=== PATIENT | female | born 1965 | race Caucasian/White ===

== ENCOUNTER → 2018-04-16 | Outpatient (CLI) | payer OTHER ==
[~2018-04-16] MED LIST: DONE10TA61 PO; DONE5TAB7 PO; DOXY100C2 PO; LEVO137T2 PO; LISI-130 PO; MEMA10TA PO; [UNRECOGNIZED DRUG - CODE] MC
--- NOTE | 2018-04-16 14:25 | EKG ---
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
[2018-04-16 14:27] LABS: BASO # 0.1 x10^3/uL (0.0-0.2); BASO % 1 % (0-3); EOS # 0.6 x10^3/uL (0.0-0.7); EOS % 9 % (0-3); HEMATOCRIT 42.2 % (36.0-47.0); HEMOGLOBIN 14.7 g/dL (12.0-15.5); LYMPH % 15 % (24-48); MEAN CORPUSCULAR HEMOGLOBIN 31 pg (25-35); MEAN CORPUSCULAR HGB CONC 35 g/dL (31-37); MEAN CORPUSCULAR VOLUME 89 fL (79-100); MONO # 0.5 x10^3/uL (0.0-1.1); MONO % 7 % (0-9); NEUT # 4.8 x10^3uL (1.8-7.7); NEUT % 68 % (31-73); PLATELET COUNT 216 x10^3/uL (140-400); RED BLOOD COUNT 4.76 x10^6/uL (3.50-5.40)
[2018-04-16 14:33] LABS: ALBUMIN 3.8 g/dL (3.4-5.0); CALCIUM 9.7 mg/dL (8.5-10.1); CREATININE 0.8 mg/dL (0.6-1.0); GFR 75.3; POTASSIUM 3.4 mmol/L (3.5-5.1); TOTAL BILIRUBIN 0.5 mg/dL (0.2-1.0); TOTAL PROTEIN 7.6 g/dL (6.4-8.2)
--- NOTE | 2018-04-16 18:19 | RAD ---
Chest, 2 views, 04/16/2018: HISTORY: Preop evaluation for pending surgery The heart size and pulmonary vascularity are normal. No pulmonary infiltrate is seen. There is no evidence of pleural fluid. Moderate multilevel degenerative change is present in the spine. IMPRESSION: No acute cardiopulmonary abnormality is detected. Electronically signed by: Edgar Mayorga MD (04/16/2018 6:17 PM) [facility]
== END | disposition home or self-care (01) ==
LOC: SURGPAT 13:40
PROVIDERS: ATTEND Obstetrics & Gynecology
DX: Z01.818 Encounter for other preprocedural examination (principal); I10 Essential (primary) hypertension; E03.9 Hypothyroidism, unspecified
CPT/HCPCS: 36415; 71046; 80053; 84443; 85025; 93005

== ENCOUNTER 2018-04-23 05:38 | Observation (INO) | payer OTHER ==
[2018-04-23] VITALS (7 sets, daily range): BP systolic 120–133; BP diastolic 64–78
[~2018-04-23] VITALS: Ht 162.6 cm; Wt 69.9 kg
[~2018-04-23 05:38] MED LIST changes: -DONE10TA61 PO
[2018-04-23] MEDS ORDERED: ESTROGENS, CONJ VAGINAL CREAM 30GM TUBE. ONE (06:06)
[2018-04-23] MEDS ORDERED: BUPIVAC MPF-EPI 0.5%-1:200000 30 ML VIAL. ONE (06:06)
[2018-04-23] MEDS ORDERED: METHYLENE BLUE 1% 10 ML VIAL. ONE (06:06)
[2018-04-23] MEDS: IV RINGERS,LACTATED 1000ML 1,000 ML IV SCH ×2 (06:47→10:26)
[2018-04-23] MEDS ORDERED: fentaNYL PF VIAL 100 MCG/2 ML VIAL IV PRN (07:00)
[2018-04-23] MEDS ORDERED: ONDANSETRON PF 4 MG/2 ML VIAL. IV PRN ×2 (07:00→10:15)
[2018-04-23] MEDS ORDERED: HYDROmorphone 2 MG/ML VIAL IV PRN (07:00)
[2018-04-23] MEDS ORDERED: LIDOCAINE 1% PF 2 ML VIAL. ID PRN (07:00)
[2018-04-23] MEDS ORDERED: MORPHINE SULFATE 2 MG/ML VIAL. IV PRN ×2 (07:00→10:15)
[2018-04-23] MEDS ORDERED: PROPOFOL 20 ML IV ONE (07:20)
[2018-04-23] MEDS ORDERED: DEXAMETHASONE SOD PHOS 20 MG/5 ML VIAL. ONE (07:21)
[2018-04-23] MEDS ORDERED: ONDANSETRON PF 4 MG/2 ML VIAL. ONE (07:21)
[2018-04-23] MEDS ORDERED: ROCURONIUM 50 MG/5 ML VIAL. ONE (07:21)
[2018-04-23] MEDS ORDERED: fentaNYL PF VIAL 100 MCG/2 ML VIAL ONE (07:22)
[2018-04-23] MEDS ORDERED: DONE10TA61 PO (07:32)
[2018-04-23] MEDS ORDERED: PHENYLEPHRINE in 0.9% NACL PF 1 MG/10 ML SYRINGE. IV ONE (08:57)
[2018-04-23] MEDS ORDERED: SCOPOLAMINE 1.5MG PATCH. TD SCH (09:00)
[2018-04-23] MEDS ORDERED: MAG HYDROX/ALUMINUM HYD/SIMETH 30 ML ORAL.SUSP PO PRN (10:15)
[2018-04-23] MEDS ORDERED: MAGNESIUM HYDROXIDE 2,400 MG/30 ML ORAL.SUSP. PO PRN (10:15)
[2018-04-23] MEDS ORDERED: CALCIUM CARBONATE 500 MG TAB.CHEW PO PRN (10:15)
[2018-04-23] MEDS ORDERED: 0.9 % SODIUM CHLORIDE 10 ML DISP.SYRIN. IV PRN (10:15)
[2018-04-23] MEDS ORDERED: diphenhydrAMINE HCL 25 MG CAPSULE PO PRN (10:15)
[2018-04-23] MEDS ORDERED: ZOLPIDEM 5 MG TABLET. PO PRN (10:15)
[2018-04-23] MEDS ORDERED: NALOXONE 0.4 MG/ML VIAL. IV PRN (10:15)
[2018-04-23] MEDS ORDERED: oxyCODONE/APAP 5/325 1 TAB TABLET PO PRN (10:15)
[2018-04-23] MEDS ORDERED: SIMETHICONE 80 MG TAB.CHEW PO PRN (10:15)
[2018-04-23] MEDS ORDERED: LACTULOSE 20 GM/30 ML SOLUTION. PO PRN (10:15)
[2018-04-23] MEDS ORDERED: diphenhydrAMINE 50 MG/ML VIAL IV PRN (10:15)
[2018-04-23] MEDS: PROCHLORPERAZINE 10 MG/2 ML VIAL. IV PRN ×2 (10:18→10:55)
[2018-04-23] MEDS: fentaNYL PF VIAL 100 MCG/2 ML VIAL IV PRN ×3 (10:19→13:50)
--- NOTE | 2018-04-23 10:20 | PDOC ---
BRIEF OPERATIVE NOTE Date: Apr 23, 2018 Pre-Op Diagnosis DUB, menorrhagia Post-Op Diagnosis same plus adhesive disease with omentum and thick bladder scarring from 3 prior c-sections Procedure Performed LAVH/RSO/left salpingectomy/adhesiolysis Surgeon Dr. Clarice Ireland Exhibition Organiser ALANA Bansal Anesthesiologist Dr. Jose Anesthesia Type: General Blood Loss 100cc IV Fluid 800cc Urine Output 500cc clear via matamoros Specimens Obtained cervix, uterus, left tube, right tube and ovary Findings pelvic adhesive disease with omentum then thick bladder scarring, normal bilateral tubes and ovaries, enlarged RV uterus Complications none Operative Note [id number] CLARICE IRELAND MD Apr 23, 2018 10:20
--- NOTE | 2018-04-23 13:06 | OP ---
DATE OF SURGERY: 04/23/2018 PREOPERATIVE DIAGNOSES: 1. Dysfunctional uterine bleeding. 2. Menorrhagia. POSTOPERATIVE DIAGNOSES: 1. Dysfunctional uterine bleeding. 2. Menorrhagia. 3. Pelvic adhesive disease with omentum and a thick bladder scarring from her 3 prior sections. PROCEDURES: Laparoscopic assisted vaginal hysterectomy, right salpingo-oophorectomy, left salpingectomy and adhesiolysis. SURGEON: Ambreen Ireland M.D. THREAD SEPARATOR: ALANA Sandoval ANESTHESIOLOGIST: Dr. Jose. ANESTHESIA: General. ESTIMATED BLOOD LOSS: 100 mL. URINE OUTPUT: 500 mL, clear via Gutierrez catheter. IV FLUIDS: 800 mL of crystalloid. SPECIMEN: Cervix, uterus, left tube and right tube and ovary. FINDINGS: Pelvic adhesive disease with omentum to the whole anterior abdominal wall to the uterus to the bladder, the thick bladder scarring and normal bilateral tubes and ovaries and enlarged retroverted uterus. COMPLICATIONS: None. DESCRIPTION OF PROCEDURE: This patient was taken to the Operating Room where general anesthesia was placed. The patient was [facility] The patient's abdomen and vagina were prepped and draped in the normal sterile fashion and a Gutierrez catheter had been inserted under sterile technique. Upon my arrival, a timeout was performed indicating she had received her preoperative antibiotics, went over her allergies, procedures, everything. Once everything was agreed upon, a bivalve speculum was placed in the patient's vagina. A single-tooth tenaculum was used to grasp the anterior lip of the cervix. A 10 mL of 0.25% Marcaine with epinephrine was used to circumferentially inject around the cervix for both hemodissection and hemostatic purposes later. The Valtchev uterine manipulator was then placed through the endocervical os, locked on the single tooth tenaculum and the bivalve speculum was then removed. Top gloves were discarded and changed. At this point, a supraumbilical skin incision was made with the scalpel. A curved Chelsea was used to dissect through the subcuticular layer to the fascia. The 5 mm Visiport was used to directly enter the abdominal cavity, opening patient pressure was 3-4 mmHg. The patient was placed in Trendelenburg position. Carbon dioxide gas was used to appropriately insufflate the abdominal cavity to maintain a pressure of 14-15 mmHg. There were omental adhesions I could see in front of my port, but the port appeared to be clear. I was able to get around it. We put in a left lower quadrant port and a right lower quadrant port after transilluminating the abdomen making sure it was clear of any adhesions and placing it under direct visualization and insufflating the balloon with 2 mL of air. We then did move the camera and made sure the umbilical port was clear and it was. I took down some adhesions on the left side as they were more of a mass on that side, so the gynecological assistant port could get in and get down to the uterus, but we could see the uterus once Trendelenburg was performed and operate there. The omental scarring and bladder to that area was pretty thick as well, so this was all taken down using the monopolar hook on the LigaSure under direct visualization, started on the right side elevating the right tube and ovary, finding the ureter, coursing low, staying high on the IP ligament, taking the right ovary per patient request. They both looked normal. So, I did leave the left ovary and took the right ovary and then crossing the round ligament on the right side and starting that bladder flap as well. The left side had more adhesions. The omental adhesions were taken down, the left tube was elevated, going above the ovary, below the tube, leaving the left ovary, again per patient has been request for hormones, leaving one normal ovary. There was small clears probably 0.5 cm serous straw-colored cyst that was burst on the left ovary as well, but leaving it, taking the tube, crossing the uterine ovarian pedicle and staying posteriorly. Adhesions were thicker here, so I went through and got the bladder down on the right side, came across the midline to the side and then the round was very attenuated on this side from the pulling and scarring. Once I got the bladder down, I was able to cauterize the round ligament and free up the uterus and allowed it to move and then took the bladder down sharply and bluntly as well again with the monopolar hook and then just using the [place] to gently push the uterus up towards the head of the bed and peel it down. Once this was done, the uterine vessels were obtained on both sides going through the cardinal and broad ligaments down to the level of the uterosacrals, skeletonizing and getting the vasculature. Once this was all done, the uterus was completely free and it was blanching. All instruments were removed from the abdomen and attention was turned vaginally. The single tooth and Valtchev were removed. A weighted speculum was placed in the patient's vagina. Thyroid Miguel clamps were placed on the anterior and posterior lips of the cervix respectively. A scalpel was used to make a circumferential incision in the cervix. The suction was used to gently push up the anterior bladder peritoneum, peeling it down until we entered the anterior cul-de-sac sharply by just peeling layer after layer with just a scalpel and getting it. A curved Oxford was placed in the anterior cul-de-sac. The cervix was elevated and the posterior cul-de-sac was sharply entered with Schroeder scissors. A #0 Vicryl stitch was used to secure the posterior peritoneum here to the vaginal cuff securing the peritoneum to the vaginal cuff and tagging it with a curved Chelsea clamp and cutting and passing the needle off. The short weighted speculum was removed and replaced with the long weighted vaginal Preeti speculum. Curved Cristóbal clamps x 2 were placed on the patient's left uterosacral ligament where they were doubly clamped with curved Heaneys, cut with Schroeder scissors and suture ligated x 2 with 0 Vicryl. Second one was taken through the vaginal cuff, securing uterosacral ligament to the vaginal cuff and tagging it with a straight Chelsea clamp and cutting and passing the needle off. This was done exactly the same on the patient's right side, double clamping the uterosacrals with curved Cristóbal's, cutting with Schroeder scissors, suture ligating x 2 with #0 Vicryl, again taking the second one through the vaginal cuff. The right side was completely free. The left side had a small area left. A curved right angle clamp was taken around and the vaginal LigaSure was used to cauterize and cut this. The cervix, uterus, left tube and right tube and ovary were delivered in total and passed off for permanent pathology. Sponge stick was used to examine the pedicles. There was some slight bleeding from the patient's right side, the small bleeder was found. It was grasped with a burlisher and gone behind it with the vaginal LigaSure, cauterizing it with excellent results. The remainder appeared to be cuff bleeding, so I did not go up and get the entire anterior bladder peritoneum as this was where it was all scarred and everything, but I did get a small bite here going through the left uterosacral ligament, posterior peritoneum and right uterosacral ligament, thus closing the peritoneum in a pursestring like fashion. Once this was done, a full length 2-0 Vicryl was used to close the cuff in an anterior to posterior running locked fashion. The right and left uterosacral tags were clipped before this. The cuff was closed in a running locked fashion and tied to that posterior vaginal cuff tag. An interrupted stitch was placed in the middle for excellent results and hemostasis. The vaginal cuff appeared hemostatic. So at this point, all instruments were removed from the vagina. Sponge, lap and needle counts were correct x 2 by OR personnel. All gloves were discarded and changed and a second look was taken from above. Gas was reinsufflated, the patient was placed back in Trendelenburg, copious irrigation. There was some slight bleeding from the left cuff. This was grasped with the LigaSure with excellent results and Tisseel was placed over the remainder cuff. The left ovary looked good. The right IP ligament cuff looked good. The remainder of the cuff looked good. Copious irrigation then revealed hemostasis. The right and left lower quadrant ports, the gas was taken out of the cuff and the right and left lower quadrant ports were removed under direct visualization. These too were hemostatic. Gas was released from the umbilical port. All three port sites were closed with 4-0 nylon at the skin and injected with local. The patient was then awakened from anesthesia, extubated, and brought to Recovery Room in stable condition. AMBREEN IRELAND MD DR: XIN/jocelyn JOB#: [id number] / [id number]
[2018-04-23] MEDS ORDERED: KETOROLAC 30 MG/ML VIAL. IV PRN (13:45)
[2018-04-24 00:05] VITALS: BP 118/60
[2018-04-24 03:52] LABS: CALCIUM 8.9 mg/dL (8.5-10.1); CREATININE 0.9 mg/dL (0.6-1.0); GFR 65.5; POTASSIUM 3.9 mmol/L (3.5-5.1)
[2018-04-24 03:55] VITALS: BP_SYST 103; BP_SYST 97; BP_DIAS 36; BP_DIAS 52
[2018-04-24] MEDS ORDERED: LEVOTHYROXINE 137 MCG TABLET PO SCH (06:00)
[2018-04-24 07:50] VITALS: BP 101/62
--- NOTE | 2018-04-24 08:09 | PDOC ---
SURGICAL PROGRESS NOTE Subjective Doing well from surgery perspective. Voiding without catheter. Tolerating regular diet. Wants to go home. Minimal pain no pain meds. Scant VB Vital Signs Vital Signs Date Time Temp Pulse Resp B/P (MAP) Pulse Ox O2 Delivery O2 Flow Rate FiO2 04/24/18 03:55 97.7 97/36 (56) 97.7 04/24/18 03:55 72 18 97 Room Air 04/23/18 12:08 2.0 I&O Intake and Output 04/24/18 07:00 Intake Total 1050 ml Output Total 600 ml Balance 450 ml Intake IV Total 1050 ml Output Urine Total 500 ml Estimated Blood Loss 100 ml PATIENT HAS A ARIAS: No General: Alert, Oriented X3, Cooperative, No acute distress HEENT: Atraumatic Heart: Regular rate Abdomen: Soft, No tenderness, Other (bandages c/d/i) Extremities: No clubbing, No cyanosis, No edema, No tenderness/swelling Skin: No rashes, No breakdown Neuro: Normal speech Psych/Mental Status: Mental status NL (she has dementia, but baqck to her baseline), Mood NL Labs Laboratory Tests Test 04/24/18 03:15 Hematocrit 32.9 % (36.0-47.0) Sodium Level 139 mmol/L (136-145) Potassium Level 3.9 mmol/L (3.5-5.1) Chloride Level 103 mmol/L (98-107) Carbon Dioxide Level 29 mmol/L (21-32) Anion Gap 7 (6-14) Blood Urea Nitrogen 11 mg/dL (7-20) Creatinine 0.9 mg/dL (0.6-1.0) Estimated GFR (Cockcroft-Gault) 65.5 Glucose Level 125 mg/dL (70-99) Calcium Level 8.9 mg/dL (8.5-10.1) Laboratory Tests Test 04/24/18 03:15 Hematocrit 32.9 % (36.0-47.0) Sodium Level 139 mmol/L (136-145) Potassium Level 3.9 mmol/L (3.5-5.1) Chloride Level 103 mmol/L (98-107) Carbon Dioxide Level 29 mmol/L (21-32) Anion Gap 7 (6-14) Blood Urea Nitrogen 11 mg/dL (7-20) Creatinine 0.9 mg/dL (0.6-1.0) Estimated GFR (Cockcroft-Gault) 65.5 Glucose Level 125 mg/dL (70-99) Calcium Level 8.9 mg/dL (8.5-10.1) I have reviewed the following labs, vitals, nursing Psych: Other (dementia) Assessment/Plan POD#1 s/p LAVH/RSO/left salpingectomy/adhesiolysis Routine pO care d/c to home NPV x 6 weeks light/limited activity x 2 weeks NO driving on pain meds keep scheduled follow up with me in 7-10d call or return sooner for any other questions or concerns not limited to but including pain unrelieved with pain meds, increased or unexplained vaginal bleeding or T>100.4 already has pain meds at home AMBREEN ROSS MD Apr 24, 2018 08:09
--- NOTE | 2018-04-24 08:12 | PDOC3 ---
Discharge Summary Visit Information Date of Admission: Apr 23, 2018 Date of Discharge: Apr 24, 2018 Admitting Diagnosis Comment: menorrhagia, DUB Brief Hospital Course Allergies Allergies Coded Allergies Type Severity Reaction Last Updated Verified codeine Allergy Intermediate 04/23/18 Yes Vital Signs Vital Signs Date Time Temp Pulse Resp B/P (MAP) Pulse Ox O2 Delivery O2 Flow Rate FiO2 04/24/18 03:55 97.7 97/36 (56) 97.7 04/24/18 03:55 72 18 97 Room Air 04/23/18 12:08 2.0 Lab Results Laboratory Tests Test 04/24/18 03:15 Hematocrit 32.9 % (36.0-47.0) Sodium Level 139 mmol/L (136-145) Potassium Level 3.9 mmol/L (3.5-5.1) Chloride Level 103 mmol/L (98-107) Carbon Dioxide Level 29 mmol/L (21-32) Anion Gap 7 (6-14) Blood Urea Nitrogen 11 mg/dL (7-20) Creatinine 0.9 mg/dL (0.6-1.0) Estimated GFR (Cockcroft-Gault) 65.5 Glucose Level 125 mg/dL (70-99) Calcium Level 8.9 mg/dL (8.5-10.1) Laboratory Tests Test 04/24/18 03:15 Hematocrit 32.9 % (36.0-47.0) Sodium Level 139 mmol/L (136-145) Potassium Level 3.9 mmol/L (3.5-5.1) Chloride Level 103 mmol/L (98-107) Carbon Dioxide Level 29 mmol/L (21-32) Anion Gap 7 (6-14) Blood Urea Nitrogen 11 mg/dL (7-20) Creatinine 0.9 mg/dL (0.6-1.0) Estimated GFR (Cockcroft-Gault) 65.5 Glucose Level 125 mg/dL (70-99) Calcium Level 8.9 mg/dL (8.5-10.1) Brief Hospital Course Ms. Hooks is a 53 old female who presented with DUB/menorrhagia despite hormonal therapy. She underwent and LAVH/RSO/left salpingectomy and adhesiolysis yesterday without complications. She has had an unremarkable postoperative course and is desiring to go home. She is tolerating a regular diet, voiding without catheter and minimal pain. Discharge Information Condition at Discharge: Improved Follow Up: Weeks Disposition/Orders: D/C to Home Scheduled Donepezil Hcl (Donepezil Hcl) 5 Mg Tablet, 1 TAB PO DAILY, #30 Ref 5 (Reported) Entered as Reported by: MEGHAN VEGA on 04/16/18 1355 Last Taken: Unknown Dose on 04/23/18 0500 Last Action: HELD on 04/23/181003 by AMBREEN ROSS Doxycycline Hyclate (Doxycycline Hyclate) 100 Mg Capsule, 100 MG PO DAILY, ( Reported) Entered as Reported by: MEGHAN VEGA on 04/16/18 135 Last Taken: Unknown Dose on 04/22/18 Last Action: HELD on 04/23/18 100 by AMBREEN ROSS Levothyroxine Sodium (Synthroid) 137 Mcg Tablet, 1 TAB PO DAILY, #30 Ref 5 ( Reported) Entered as Reported by: MEGHAN VEGA on 04/16/181354 Last Taken: Unknown Dose on 04/22/18 Last Action: Continued on 04/23/181003 by AMBREEN ROSS Lisinopril (Lisinopril) 40 Mg Tablet, 1 TAB PO DAILY, #30 Ref 5 (Reported) Entered as Reported by: MEGHAN VEGA on 04/16/181354 Last Taken: Unknown Dose on 04/22/18 Last Action: Continued on 04/23/181003 by AMBREEN ROSS Memantine Hcl (Namenda) 10 Mg Tablet, 1 TAB PO BID, #180 Ref 1 (Reported) Entered as Reported by: MEGHAN VEGA on 04/16/181354 Last Taken: Unknown Dose on 04/22/18 Last Action: HELD on 04/23/18 100 by AMBREEN ROSS Patient Instructions Patient Instructions POD#1 s/p LAVH/RSO/left salpingectomy/adhesiolysis Routine pO care d/c to home NPV x 6 weeks light/limited activity x 2 weeks NO [address] on pain meds keep scheduled follow up with me in 7-10d call or return sooner for any other questions or concerns not limited to but including pain unrelieved with pain meds, increased or unexplained vaginal bleeding or T>100.4 already has pain meds at home AMBREEN ROSS MD Apr 24, 2018 08:12
[2018-04-24] MEDS ORDERED: LISINOPRIL 20 MG TABLET PO SCH (09:00)
--- NOTE | 2018-04-27 13:09 | PATHOLOGY ---
[facility] Accession Number: [id number] . 01 Material submitted: . UTERUS, CERVIX, RIGHT FALLOPIAN TUBE AND OVARY, AND LEFT FALLOPIAN TUBE . 01 Clinical history: . Vaginal bleeding. . 02 Diagnosis: Uterus, right ovary and fallopian tube, and left fallopian tube, removal: - Cervix with mild chronic inflammation, squamous metaplasia and nabothian cysts. - Basalis endometrium. - Myometrium with single leiomyoma, 0.6 cm. - Right and left fallopian tubes with no significant histopathologic diagnosis. - Right ovary with hemorrhagic corpus luteum, 0.7 cm. (SK:[facility] 04/27/2018) [facility]/04/27/2018 . 02 Electronically signed: . Joshua Kwon MD, Pathologist NPI- [id number] . 01 Gross description: . Received in formalin labeled "Rossy Hooks, uterus, cervix, right fallopian tube, right ovary, left fallopian tube" is a hysterectomy specimen consisting of a uterus with attached fallopian tubes and an attached right ovary. The uterus weighs 113 g and measures 9.6 cm from fundus to cervix, 6.6 cm from cornu to cornu, and 4.7 cm from anterior to posterior. The serosa is red-brown and ragged on the anterior aspect over a 4.6 x 3.7 cm area. The remaining serosa is pink-red and smooth. The cervical os is ovoid and measures 1.2 x 0.8 cm, and the ectocervix is pink-wilhelm and glistening. The cervix is probed patent and the uterus is opened to reveal a 4.0 x 1.7 cm endometrial cavity and a 2.7 x 0.9 cm endocervical canal. The average endometrial thickness measures 0.2 cm and the average myometrial thickness measures 2.3 cm. The uterus is serially sectioned to reveal one 0.6 cm leiomyoma without hemorrhage or necrosis. The right fimbriated fallopian tube measures 2.6 cm in length and 0.8 cm in diameter. The left fimbriated fallopian tube measures 2.4 cm in length and 0.6 cm in diameter. The serosal surfaces are pink wilhelm and smooth and the left fallopian tube has 2 thin-walled paratubal cysts each measuring 1.0 cm in greatest dimension. The fallopian tubes are serially sectioned to reveal pinpoint lumens. The right ovary weighs 5 g and measures 3.2 x 2.0 x 1.5 cm. Upon sectioning, the ovary displays a hemorrhagic cyst measuring 0.7 cm in greatest dimension. The remaining cut surface is wilhelm-white and unremarkable. . [employer] Window [employer] Maker sections are submitted as follows: A1 12:00 cervix A2 6:00 cervix A3 anterior endomyometrium and ragged serosa A4 posterior endomyometrium A5 shared services representative right fallopian tube A6 shared services representative left fallopian tube A7 shared services representative right ovary A8 [place] SYC/SYC . 02 Pathologist provided ICD-10: D25.9, N72, N93.9 . 02 CPT . 605173 Specimen Comment: A courtesy copy of this report has been sent to Specimen Comment: [phone], . Specimen Comment: Report sent to / DR VILLA Specimen Comment: A duplicate report has been generated due to demographic updates. Performed at: 01 [facility] [address] [id number] MD Yan Mohan MD Phone: [phone] Performed at: [address] [facility] [address] [id number] MD Cliff Rausch MD Phone: [phone]
== END 2018-04-24 12:47 | disposition home or self-care (01) ==
LOC: SURG 05:38 → EDUNIT# 07:30 → 3 NORTH 10:33
PROVIDERS: ADMIT Obstetrics & Gynecology; ATTEND Obstetrics & Gynecology
DX: N93.8 Other specified abnormal uterine and vaginal bleeding (principal); N92.0 Excessive and frequent menstruation with regular cycle; N73.6 Female pelvic peritoneal adhesions (postinfective); K66.0 Peritoneal adhesions (postprocedural) (postinfection); N85.4 Malposition of uterus; Z98.891 History of uterine scar from previous surgery
CPT/HCPCS: 36415; 58552; 80048; 85014; 86850; 86900; 86901; 88307; 96374; 96375; G0378; G0379; J0690; J0780; J1100; J1885; J2370; J2704; J3010; J3490; J7030; J2405; Q9968

== ENCOUNTER 2020-02-01 07:59 | Emergency (ER) | payer OTHER ==
[~2020-02-01] VITALS: Ht 162.6 cm; Wt 65.0 kg
[~2020-02-01 07:59] MED LIST changes: +DONE10TA61 PO; -LEVO137T2 PO; +LEVO137T44 PO
[2020-02-01] MEDS ORDERED: LIDOCAINE 1%/EPI 1:100,000 20 ML VIAL. INJ ONE (08:15)
--- NOTE | 2020-02-01 09:53 | RAD ---
EXAM: CT Head without IV contrast INDICATION: Reason: FELL OUT OF BED, HEAD INJURY / Spl. Instructions: / History: TECHNIQUE: Multi-detector row CT images were obtained of the head without the use of IV contrast. All CT scans performed at this facility utilize dose optimization techniques as appropriate to the exam, including the following: Automated exposure control and adjustment of the mA and/or KV according to patient size (this includes techniques or standardized protocols for targeted exams where dose is indication/reason for exam). COMPARISON: None FINDINGS: BRAIN PARENCHYMA: No evidence of acute intraparenchymal hemorrhage or infarct. There is generalized parenchymal volume loss somewhat advanced for stated patient age. Beam hardening artifact from the patient's thickened calvarium is present along the cerebral gyri. VENTRICLES & EXTRA-AXIAL SPACES: Ventricles are enlarged in proportion to the degree of parenchymal volume loss present.. Basilar cisterns are patent. No pathologic extra-axial fluid collection or mass. ORBITS: Orbital contents are unremarkable. SINUSES: Visualized paranasal sinuses and mastoid air cells are clear. OSSEOUS & SOFT TISSUES: Calvarium and skull base are intact. No skull fracture. No aggressive appearing osseous lesions.. Left frontal scalp contusion with punctate density at the skin surface (image 11 of series 2). IMPRESSION: 1. No acute intracranial pathology. 2. Left frontal scalp contusion. 3. Generalized parenchymal atrophy, somewhat advanced for age. EXAM: CT Maxillofacial with IV contrast INDICATION: Reason: FELL OUT OF BED, HEAD INJURY / Spl. Instructions: / History: TECHNIQUE: Multi-detector row CT images were obtained through the maxillofacial region with the use of IV contrast. Post-processing reconstructed images were obtained for interpretation. All CT scans performed at this facility utilize dose optimization techniques as appropriate to the exam, including the following: Automated exposure control and adjustment of the mA and/or KV according to patient size (this includes techniques or standardized protocols for targeted exams where dose is indication/reason for exam). IV CONTRAST: Administered COMPARISON: None FINDINGS: OSSEOUS: Subtle deformity to the nasal bones without associated soft tissue swelling could reflect an age-indeterminate, possibly chronic nasal bone fracture. Otherwise no evidence of fracture or bone destruction. VISUALIZED INTRACRANIAL STRUCTURES: Unremarkable. ORBITS: Orbital contents are unremarkable.. SINUSES: Visualized paranasal sinuses and mastoid air cells are clear. SOFT TISSUES: Left frontal scalp swelling IMPRESSION: Left frontal scalp swelling with no acute traumatic facial fractures noted. EXAM: CT Cervical Spine without IV contrast INDICATION: Reason: FELL OUT OF BED, HEAD INJURY / Spl. Instructions: / History: TECHNIQUE: Multi-detector row CT images were obtained through the cervical spine without the use of IV contrast. Post-processing sagittal and coronal reconstructed images were obtained for interpretation. All CT scans performed at this facility utilize dose optimization techniques as appropriate to the exam, including the following: Automated exposure control and adjustment of the mA and/or KV according to patient size (this includes techniques or standardized protocols for targeted exams where dose is indication/reason for exam). COMPARISON: None FINDINGS: The initially provided images cover the patient's C-spine down to the C7 mid body but do not fully cover the cervical thoracic junction. CRANIOCERVICAL JUNCTION: Unremarkable. ALIGNMENT: Alignment is within normal limits down to C6-C7. OSSEOUS: No evidence of fracture or bone destruction down to C6-C7. DISC SPACES: Degenerative changes at C5-C6 and C6-C7 are present. On initial imaging, C7-T1 is not easily assessed. FACET JOINTS: Unremarkable in the visualized portion. SPINAL CANAL: Unremarkable in the visualized portion. NEUROFORAMINA: Multilevel degenerative spondylosis results in varying degrees of foraminal narrowing. SOFT TISSUES: No prevertebral soft tissue swelling down to the C6-C7 level. IMPRESSION: Initial images of the cervical spine reveal disc degenerative change but no acute traumatic findings. Since the cervicothoracic junction has not been satisfactorily included in the [id number], the patient will be brought back for additional images and at which time, an addendum can be issued. Discussed with Dr. Love by telephone at 9:45 AM 02/01/2020. Electronically signed by: Renetta Curry MD (02/01/2020 9:50 AM) [id number]
[2020-02-01 10:11] LABS: BASO % 0 % (0-3); EOS % 0 % (0-3); HEMATOCRIT 42.9 % (36.0-47.0); HEMOGLOBIN 14.3 g/dL (12.0-15.5); LYMPH # 0.9 x10^3/uL (1.0-4.8); LYMPH % 11 % (24-48); MEAN CORPUSCULAR HEMOGLOBIN 31 pg (25-35); MEAN CORPUSCULAR HGB CONC 33 g/dL (31-37); MEAN CORPUSCULAR VOLUME 92 fL (79-100); MONO # 0.5 x10^3/uL (0.0-1.1); MONO % 6 % (0-9); NEUT # 7.1 x10^3/uL (1.8-7.7); NEUT % 83 % (31-73); PLATELET COUNT 150 x10^3/uL (140-400); RED BLOOD COUNT 4.66 x10^6/uL (3.50-5.40); RED CELL DISTRIBUTION WIDTH 15.9 % (11.5-14.5); WHITE BLOOD COUNT 8.6 x10^3/uL (4.0-11.0)
[2020-02-01 10:34] LABS: CALCIUM 8.7 mg/dL (8.5-10.1); CREATININE 0.7 mg/dL (0.6-1.0); GFR 87.2; POTASSIUM 4.3 mmol/L (3.5-5.1)
--- NOTE | 2020-02-01 10:43 | RAD ---
SHOULDER 2+V LEFT History: Reason: FELL OUT OF BED, LEFT SIDE SHOULDER CONTUSION / Spl. Instructions: / History: Technique: 2 views left shoulder. Comparison: None. Findings: Normal alignment of the left glenohumeral and acromioclavicular joints. No fracture. Soft tissues unremarkable. Impression: 1. No acute osseous abnormality. Electronically signed by: Henry Eaton DO (02/01/2020 10:40 AM) [id number]
[2020-02-01 10:44] LABS: ALBUMIN/GLOBULIN RATIO 0.8 (1.0-1.7); MAGNESIUM 2.6 mg/dL (1.8-2.4); TOTAL BILIRUBIN 0.6 mg/dL (0.2-1.0)
--- NOTE | 2020-02-01 10:45 | RAD ---
PELVIS History: Reason: FELL OUT OF BED / Spl. Instructions: / History: Technique: AP view the pelvis. Comparison: None. Findings: Normal AP alignment of the hips. No fracture. Lower lumbar spondylosis. Impression: 1. No acute osseous abnormality. Electronically signed by: Henry Eaton DO (02/01/2020 10:42 AM) [id number]
--- NOTE | 2020-02-01 10:55 | RAD ---
CHEST AP ONLY History: Reason: FELL OUT OF BED/ CT ALSO / Spl. Instructions: / History: . Pain. Comparison: April 16, 2018 Findings: No consolidation or pleural effusion. Normal heart size. No pneumothorax. Peripherally calcified lesion within the left upper abdomen, splenic cystic lesion, unchanged compared to prior. Impression: 1. No acute cardiopulmonary process. Electronically signed by: Henry Eaton DO (02/01/2020 10:52 AM) [id number]
[2020-02-01] MEDS ORDERED: DIPH,PERTUSS(ACELL),TET VAC/PF 0.5 ML SYRINGE. VAX IM ONE (11:45)
[2020-02-01] MEDS ORDERED: DEXTROSE 50% 25 GM / 50ML DISP.SYRIN. IV ONE (11:45)
--- NOTE | 2020-02-01 11:50 | EKG ---
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
[2020-02-01] MEDS ORDERED: GLUCAGON,HUMAN RECOMBINANT 1 MG/ML VIAL. IM STA (12:10)
--- NOTE | 2020-02-01 12:38 | PHYS DOC ---
Past Medical History Past Medical History: Anxiety, Dementia, Other Additional Past Medical Histor: DYSPHASIA Past Surgical History: No Surgical History Smoking Status: Unknown if ever smoked Alcohol Use: None General Adult EDM: Chief Complaint: HEAD INJURY/TRAUMA HPI: HPI: Patient is a 54 year old female who [facility] she was found on the floor in the bathroom this morning. alf staff found her in her bed this morning at 5 AM this morning. Then around 8:00 this morning patient was found in the bathroom. Patient has history of dementia, have history of frequent falls in the past. Last tetanus shot was A year ago. Patient could not provide any information. Patient is not on any blood thinner. Review of Systems: Review of Systems: Constitutional: Denies fever or chills. [] Eyes: Denies change in visual acuity. [] HENT: Denies nasal congestion or sore throat. [] Respiratory: Denies cough or shortness of breath. [] Cardiovascular: Denies chest pain or edema. [] GI: Denies abdominal pain, nausea, vomiting, bloody stools or diarrhea. [] : Denies dysuria. [] Musculoskeletal: Denies back pain or joint pain. [] Integument: Denies rash. [] Neurologic: Patient complained of headache Endocrine: Denies polyuria or polydipsia. [] Lymphatic: Denies swollen glands. [] Psychiatric: Denies depression or anxiety. [] Heart Score: Risk Factors: Risk Factors: DM, Current or recent (<one month) smoker, HTN, HLP, family history of CAD, obesity. Risk Scores: Score 0 - 3: 2.5% MACE over next 6 weeks - Discharge Home Score 4 - 6: 20.3% MACE over next 6 weeks - Admit for Clinical Observation Score 7 - 10: 72.7% MACE over next 6 weeks - Early Invasive Strategies Current Medications: Current Medications Medications (Trade) Dose Ordered Sig/Monika Start Time Stop Time Status Last Admin Dose Admin Dextrose (Dextrose 50%-Water Syringe) 25 gm 1X ONCE 02/01/20 11:45 02/01/20 12:11 DC Diphtheria/ Tetanus/Acell Pertussis (ADACEL TDap SYRINGE) 0.5 ml ONCE ONCE 02/01/20 11:45 02/01/20 11:46 DC Glucagon (Glucagen) 1 mg 1X STAT 02/01/20 12:10 8/11/20 12:13 DC 02/01/20 12:18 1 MG Lidocaine/ Epinephrine (LIDOCAINE 1%-EPI 1:100,000 Multi-Dose) 20 ml 1X ONCE 02/01/20 08:15 02/01/20 08:17 DC 02/01/20 09:00 20 ML Allergies: Allergies: Allergies Coded Allergies Type Severity Reaction Last Updated Verified codeine Allergy Intermediate 04/23/18 Yes Physical Exam: PE: Constitutional: Well developed, well nourished, confused. HENT: Normocephalic, about 4 cm laceration on the left forehead area, bilateral external ears normal, oropharynx moist, no oral exudates, nose normal. [] Eyes: PERRLA, EOMI, conjunctiva normal, no discharge. [] Neck: Normal range of motion, no tenderness, supple, no stridor. [] Cardiovascular:Heart rate regular rhythm, no murmur [] Lungs & Thorax: Bilateral breath sounds clear to auscultation [] Abdomen: Bowel sounds normal, soft, no tenderness, no masses, no pulsatile masses. [] Skin: Cold to touch, skin contusion on left shoulder. Left side forehead skin laceration. Back: No tenderness, no CVA tenderness. [] Extremities: No tenderness, no cyanosis, no clubbing, ROM intact, no edema. [] Neurologic: Patient awake alert but very confused. Psychologic: Not able to evaluate. Current Patient Data: Labs: Laboratory Tests Test 02/01/20 10:05 02/01/20 12:09 White Blood Count 8.6 x10^3/uL (4.0-11.0) Red Blood Count 4.66 x10^6/uL (3.50-5.40) Hemoglobin 14.3 g/dL (12.0-15.5) Hematocrit 42.9 % (36.0-47.0) Mean Corpuscular Volume 92 fL (79-100) Mean Corpuscular Hemoglobin 31 pg (25-35) Mean Corpuscular Hemoglobin Concent 33 g/dL (31-37) Red Cell Distribution Width 15.9 % (11.5-14.5) H Platelet Count 150 x10^3/uL (140-400) Neutrophils (%) (Auto) 83 % (31-73) H Lymphocytes (%) (Auto) 11 % (24-48) L Monocytes (%) (Auto) 6 % (0-9) Eosinophils (%) (Auto) 0 % (0-3) Basophils (%) (Auto) 0 % (0-3) Neutrophils # (Auto) 7.1 x10^3/uL (1.8-7.7) Lymphocytes # (Auto) 0.9 x10^3/uL (1.0-4.8) L Monocytes # (Auto) 0.5 x10^3/uL (0.0-1.1) Eosinophils # (Auto) 0.0 x10^3/uL (0.0-0.7) Basophils # (Auto) 0.0 x10^3/uL (0.0-0.2) Sodium Level 142 mmol/L (136-145) Potassium Level 4.3 mmol/L (3.5-5.1) Chloride Level 106 mmol/L (98-107) Carbon Dioxide Level 26 mmol/L (21-32) Anion Gap 10 (6-14) Blood Urea Nitrogen 26 mg/dL (7-20) H Creatinine 0.7 mg/dL (0.6-1.0) Estimated GFR (Cockcroft-Gault) 87.2 BUN/Creatinine Ratio 37 (6-20) H Glucose Level 62 mg/dL (70-99) L Calcium Level 8.7 mg/dL (8.5-10.1) Magnesium Level 2.6 mg/dL (1.8-2.4) H Total Bilirubin 0.6 mg/dL (0.2-1.0) Aspartate Amino Transferase (AST) 36 U/L (15-37) Alanine Aminotransferase (ALT) 24 U/L (14-59) Alkaline Phosphatase 88 U/L (46-116) Creatine Kinase 310 U/L (26-192) H Troponin I Quantitative < 0.017 ng/mL (0.000-0.055) QQ-Jfq-K-Type Natriuretic Peptide 61 pg/mL (0-124) Total Protein 7.0 g/dL (6.4-8.2) Albumin 3.0 g/dL (3.4-5.0) L Albumin/Globulin Ratio 0.8 (1.0-1.7) L Glucose (Fingerstick) 57 mg/dL (70-99) L Laboratory Tests 02/01/20 10:05 Laboratory Tests 02/01/20 10:05 Vital Signs: Vital Signs Date Time Temp Pulse Resp B/P (MAP) Pulse Ox O2 Delivery O2 Flow Rate FiO2 02/01/20 09:22 48 87/65 (72) 100 Room Air 02/01/20 08:00 96.7 20 96.7 EKG: EKG: [] Radiology/Procedures: Radiology/Procedures: [facility] [address] [place] [address] IMAGING REPORT Signed PATIENT: MARITO SHELL ACCOUNT: [id number] : 1965 LOCATION: ER AGE: 54 SEX: F EXAM STATUS: REG ER ORD. PHYSICIAN: LISA STUART DO REASON: FELL OUT OF BED, HEAD INJURY PROCEDURE: CT HEAD AND CERVICAL SPINE WO EXAM: CT Head without IV contrast INDICATION: Reason: FELL OUT OF BED, HEAD INJURY / Spl. Instructions: / History: TECHNIQUE: Multi-detector row CT images were obtained of the head without the use of IV contrast. All CT scans performed at this facility utilize dose optimization techniques as appropriate to the exam, including the following: Automated exposure control and adjustment of the mA and/or KV according to patient size (this includes techniques or standardized protocols for targeted exams where dose is indication/reason for exam). COMPARISON: None FINDINGS: BRAIN PARENCHYMA: No evidence of acute intraparenchymal hemorrhage or infarct. There is generalized parenchymal volume loss somewhat advanced for stated patient age. Beam hardening artifact from the patient's thickened calvarium is present along the cerebral gyri. VENTRICLES & EXTRA-AXIAL SPACES: Ventricles are enlarged in proportion to the degree of parenchymal volume loss present.. Basilar cisterns are patent. No pathologic extra-axial fluid collection or mass. ORBITS: Orbital contents are unremarkable. SINUSES: Visualized paranasal sinuses and mastoid air cells are clear. OSSEOUS & SOFT TISSUES: Calvarium and skull base are intact. No skull fracture. No aggressive appearing osseous lesions.. Left frontal scalp contusion with punctate density at the skin surface (image 11 of series 2). IMPRESSION: 1. No acute intracranial pathology. 2. Left frontal scalp contusion. 3. Generalized parenchymal atrophy, somewhat advanced for age. EXAM: CT Maxillofacial with IV contrast INDICATION: Reason: FELL OUT OF BED, HEAD INJURY / Spl. Instructions: / History: TECHNIQUE: Multi-detector row CT images were obtained through the maxillofacial region with the use of IV contrast. Post-processing reconstructed images were obtained for interpretation. All CT scans performed at this facility utilize dose optimization techniques as appropriate to the exam, including the following: Automated exposure control and adjustment of the mA and/or KV according to patient size (this includes techniques or standardized protocols for targeted exams where dose is indication/reason for exam). IV CONTRAST: Administered COMPARISON: None FINDINGS: OSSEOUS: Subtle deformity to the nasal bones without associated soft tissue swelling could reflect an age-indeterminate, possibly chronic nasal bone fracture. Otherwise no evidence of fracture or bone destruction. VISUALIZED INTRACRANIAL STRUCTURES: Unremarkable. ORBITS: Orbital contents are unremarkable.. SINUSES: Visualized paranasal sinuses and mastoid air cells are clear. SOFT TISSUES: Left frontal scalp swelling IMPRESSION: Left frontal scalp swelling with no acute traumatic facial fractures noted. EXAM: CT Cervical Spine without IV contrast INDICATION: Reason: FELL OUT OF BED, HEAD INJURY / Spl. Instructions: / History: TECHNIQUE: Multi-detector row CT images were obtained through the cervical spine without the use of IV contrast. Post-processing sagittal and coronal reconstructed images were obtained for interpretation. All CT scans performed at this facility utilize dose optimization techniques as appropriate to the exam, including the following: Automated exposure control and adjustment of the mA and/or KV according to patient size (this includes techniques or standardized protocols for targeted exams where dose is indication/reason for exam). COMPARISON: None FINDINGS: The initially provided images cover the patient's C-spine down to the C7 mid body but do not fully cover the cervical thoracic junction. CRANIOCERVICAL JUNCTION: Unremarkable. ALIGNMENT: Alignment is within normal limits down to C6-C7. OSSEOUS: No evidence of fracture or bone destruction down to C6-C7. DISC SPACES: Degenerative changes at C5-C6 and C6-C7 are present. On initial imaging, C7-T1 is not easily assessed. FACET JOINTS: Unremarkable in the visualized portion. SPINAL CANAL: Unremarkable in the visualized portion. NEUROFORAMINA: Multilevel degenerative spondylosis results in varying degrees of foraminal narrowing. SOFT TISSUES: No prevertebral soft tissue swelling down to the C6-C7 level. IMPRESSION: Initial images of the cervical spine reveal disc degenerative change but no acute traumatic findings. Since the cervicothoracic junction has not been satisfactorily included in the [id number]-[id number]-roum, the patient will be brought back for additional images and at which time, an addendum can be issued. Discussed with Dr. Stuart by telephone at 9:45 AM 02/01/2020. Electronically signed by: Jessica Curry MD (02/01/2020 9:50 AM) [id number] DICTATED and SIGNED BY: JESSICA CURRY MD DATE: 02/01/20 [address] [place] [address] IMAGING REPORT Signed PATIENT: MARITO SHELL ACCOUNT: [id number] : 1965 LOCATION: ER AGE: 54 SEX: F EXAM STATUS: REG ER ORD. PHYSICIAN: LISA STUART DO REASON: FELL OUT OF BED PROCEDURE: PELVIS PELVIS History: Reason: FELL OUT OF BED / Spl. Instructions: / History: Technique: AP view the pelvis. Comparison: None. Findings: Normal AP alignment of the hips. No fracture. Lower lumbar spondylosis. Impression: 1. No acute osseous abnormality. Electronically signed by: Henry Eaton DO (02/01/2020 10:42 AM) [id number] DICTATED and SIGNED BY: HENRY EATON DO DATE: 02/01/[address] [address] IMAGING REPORT Signed PATIENT: MARITO SHELL ACCOUNT: [id number] : 1965 LOCATION: ER AGE: 54 SEX: F EXAM STATUS: REG ER ORD. PHYSICIAN: LISA STUART DO REASON: FELL OUT OF BED, LEFT SIDE SHOULDER CONTUSION PROCEDURE: SHOULDER 2+V LEFT SHOULDER 2+V LEFT History: Reason: FELL OUT OF BED, LEFT SIDE SHOULDER CONTUSION / Spl. Instructions: / History: Technique: 2 views left shoulder. Comparison: None. Findings: Normal alignment of the left glenohumeral and acromioclavicular joints. No fracture. Soft tissues unremarkable. Impression: 1. No acute osseous abnormality. Electronically signed by: Henry Eaton DO (02/01/2020 10:40 AM) [id number] DICTATED and SIGNED BY: HENRY EATON DO DATE: 02/01/20 1040 [facility] [address] [place] [address] IMAGING REPORT Signed PATIENT: MARITO SHELL ACCOUNT: [id number] : 1965 LOCATION: ER AGE: 54 SEX: F EXAM STATUS: REG ER ORD. PHYSICIAN: LISA STUART DO REASON: FELL OUT OF BED/ CT ALSO PROCEDURE: CHEST AP ONLY CHEST AP ONLY History: Reason: FELL OUT OF BED/ CT ALSO / Spl. Instructions: / History: . Pain. Comparison: April 16, 2018 Findings: No consolidation or pleural effusion. Normal heart size. No pneumothorax. Peripherally calcified lesion within the left upper abdomen, splenic cystic lesion, unchanged compared to prior. Impression: 1. No acute cardiopulmonary process. Electronically signed by: Henry Eaton DO (02/01/2020 10:52 AM) [id number] DICTATED and SIGNED BY: HENRY EATON DO DATE: 02/01/20 1052 Laceration Procedure: FOREHEAD AREA, 3.5 CM NO ACTIVE BLEEDING. THE WOUND WAS CLEANED WITH NORMAL SALINE 20 ML OF 1% LIDOCAINE WITH EPI WAS USED TO ANESTHESIZE THE AREA. THE SKIN WAS CLOSED WITH 6 SUTURES, 5-0-NYLON, SIMPLE INTERRUPTOUS METHOD. NO COMPLICATION THE WOUND WAS THEN COVERED WITH GAUZE. Course & Med Decision Making: Course & Med Decision Making Pertinent Labs and Imaging studies reviewed. (See chart for details) Patient is a 54-year-old female who was evaluated in the ER after she was found in the bathroom this morning by [facility] staff. Patient has history of dementia, has history of frequent fall. CT scan her head, facial bones, CT cervical spine did not show any acute problem. Her x-ray of her pelvis and her chest did not show any acute problem. X-ray of her left shoulder did not show any acute problem. Laceration on the forehead area was closed with sutures. Patient was discharged back to the [facility] in stable condition. Dragon Disclaimer: Dragon Disclaimer: This electronic medical record was generated, in whole or in part, using a voice recognition dictation system. Departure Departure Impression: Primary Impression: Head injury due to trauma Additional Impression: Laceration of face Disposition: 01 HOME, SELF-CARE Condition: IMPROVED Referrals: PAMELA AC DO (PCP) follow up with your doctor in 7 days for sutures removal Patient Instructions: Facial Laceration, Head Injury, Adult Justicifation of Admission Dx: Justifications for Admission: Justification of Admission Dx: N/A LISA STUART DO Feb 01, 2020 12:37
[2020-02-01 13:03] VITALS: BP 101/56
== END 2020-02-01 13:50 | disposition home or self-care (01) ==
LOC: ER 07:59
DX: S01.81XA Laceration without foreign body of other part of head, initial encounter (principal); S40.012A Contusion of left shoulder, initial encounter; M47.816 Spondylosis without myelopathy or radiculopathy, lumbar region; R29.6 Repeated falls; F03.90 Unspecified dementia, unspecified severity, without behavioral disturbance, psychotic disturbance, mood disturbance, and anxiety; R51 Headache; M54.2 Cervicalgia; W18.39XA Other fall on same level, initial encounter; Y93.89 Activity, other specified; Y92.121 Bathroom in nursing home as the place of occurrence of the external cause; Y99.8 Other external cause status
CPT/HCPCS: 12013; 36415; 70450; 70486; 71045; 72125; 72170; 73030; 80053; 82550; 82962; 83735; 83880; 84484; 85025; 93005; 96372; 99285; J1610; J3490

== ENCOUNTER 2020-02-06 09:50 | Emergency (ER) | payer OTHER ==
[~2020-02-06] VITALS: Ht 167.6 cm; Wt 73.0 kg
--- NOTE | 2020-02-06 10:01 | PHYS DOC ---
Past Medical History Past Medical History: Anxiety, Dementia, Other Additional Past Medical Histor: DYSPHASIA Past Surgical History: No Surgical History Smoking Status: Unknown if ever smoked Alcohol Use: None General Adult EDM: Chief Complaint: MECHANICAL FALL HPI: HPI: Patient is a 54-year-old female from a memory care unit with end-stage Alzheimer's who presents after her second fall in the last couple of weeks. Today she fell at the memory unit and hit her head opening up a laceration. There was no loss of consciousness. Patient is chronically demented so any further history is impossible. EMS reports state that other than the laceration her general state of health has been unchanged. [] Review of Systems: Review of Systems: Review of systems is unobtainable secondary to altered mental status Heart Score: Risk Factors: Risk Factors: DM, Current or recent (<one month) smoker, HTN, HLP, family history of CAD, obesity. Risk Scores: Score 0 - 3: 2.5% MACE over next 6 weeks - Discharge Home Score 4 - 6: 20.3% MACE over next 6 weeks - Admit for Clinical Observation Score 7 - 10: 72.7% MACE over next 6 weeks - Early Invasive Strategies Allergies: Allergies: Allergies Coded Allergies Type Severity Reaction Last Updated Verified codeine Allergy Intermediate 04/23/18 Yes Physical Exam: PE: Constitutional: Frail, older than stated age no obvious acute distress [] HENT: She has a 1.5 cm laceration just lateral to her right eye linear superficial no foreign body noted in a bloodless field. She has a healing laceration on the left side of her forehead. [] Eyes: PERRLA, EOMI, conjunctiva normal, no discharge. [] Neck: Normal range of motion, no tenderness, supple, no stridor. [] Cardiovascular:Heart rate regular rhythm, no murmur [] Lungs & Thorax: Bilateral breath sounds clear to auscultation [] Abdomen: Bowel sounds normal, soft, no tenderness, no masses, no pulsatile masses. [] Skin: See above. [] Back: No tenderness, no CVA tenderness. [] Extremities: No tenderness, no cyanosis, no clubbing, ROM intact, no edema. [] Neurologic: Awake and alert but nonverbal moves all 4 extremities [] Psychologic: Unable to assess. [] EKG: EKG: [] Radiology/Procedures: Radiology/Procedures: [] Course & Med Decision Making: Course & Med Decision Making Pertinent Labs and Imaging studies reviewed. (See chart for details) Procedure: Laceration repair Wound was scrubbed with Betadine sponge reinspected for foreign body none was found wound edges were reapproximated and glued with Dermabond. Patient tolerated the procedure well [] Dragon Disclaimer: Dragon Disclaimer: This electronic medical record was generated, in whole or in part, using a voice recognition dictation system. Departure Departure Impression: Primary Impression: Facial laceration Qualified Codes: S01.81XA - Laceration without foreign body of other part of head, initial encounter Additional Impression: Dementia Qualified Codes: G30.0 - Alzheimer's disease with early onset; F02.80 - Dementia in other diseases classified elsewhere without behavioral disturbance Disposition: 01 HOME, SELF-CARE Condition: STABLE Referrals: PAMELA AC DO (PCP) Patient Instructions: Facial Laceration, Laceration Care, Adult Additional Instructions: Return to the emergency department with any new or concerning symptoms Justicifation of Admission Dx: Justifications for Admission: Justification of Admission Dx: N/A MILA YADAV DO Feb 06, 2020 10:01
[2020-02-06 11:29] VITALS: BP 110/57
== END 2020-02-06 11:36 | disposition home or self-care (01) ==
LOC: ER 09:50
DX: S01.81XA Laceration without foreign body of other part of head, initial encounter (principal); G30.0 Alzheimer's disease with early onset; F02.80 Dementia in other diseases classified elsewhere, unspecified severity, without behavioral disturbance, psychotic disturbance, mood disturbance, and anxiety; F41.9 Anxiety disorder, unspecified; Z88.5 Allergy status to narcotic agent; W18.39XA Other fall on same level, initial encounter; Y93.89 Activity, other specified; Y92.89 Other specified places as the place of occurrence of the external cause; Y99.8 Other external cause status
CPT/HCPCS: 12011; 99284

== ENCOUNTER 2020-02-11 00:29 | Emergency (ER) | payer OTHER ==
[~2020-02-11] VITALS: Ht 162.6 cm; Wt 69.9 kg
--- NOTE | 2020-02-11 02:10 | RAD ---
INDICATION: Reason: closed head injury / Spl. Instructions: / History: COMPARISON: February 01, 2020 TECHNIQUE: Axial CT images obtained through the head and cervical spine. One or more of the following individualized dose reduction techniques were utilized for this examination: 1. Automated exposure control; 2. Adjustment of the mA and/or kV according to patient size; 3. Use of iterative reconstruction technique. FINDINGS: Head: Thickening of the calvarium is again seen. Diffuse prominence of the ventricles and sulci again seen and could be from volume loss. Scattered foci of low density within the white matter. No midline shift. Suprasellar cistern is not effaced. Small frontal scalp cephalohematoma. Cervical spine: Degenerative changes throughout the cervical spine with scoliotic curvature. Multilevel neural foraminal and central canal stenosis. No definite acute fracture. A partially visualized left greater than right lung there is multifocal groundglass and nodular opacities. IMPRESSION: * No acute intracranial hemorrhage. * Small scalp cephalohematoma. * Degenerative changes throughout the cervical spine without acute fracture or dislocation. * Patchy opacity at the upper lungs which could be secondary to infectious etiology or edema. Electronically signed by: Jah Abbott MD (02/11/2020 2:07 AM) [id number]
--- NOTE | 2020-02-11 03:08 | RAD ---
INDICATION: Reason: trauma / Spl. Instructions: / History: COMPARISON: February 01, 2020 TECHNIQUE: Axial CT images obtained through the face. One or more of the following individualized dose reduction techniques were utilized for this examination: 1. Automated exposure control; 2. Adjustment of the mA and/or kV according to patient size; 3. Use of iterative reconstruction technique. FINDINGS: Mild angulation of the nasal bone is again seen. Paranasal sinuses are well aerated. No definite new fracture or dislocation. IMPRESSION: * No definite acute fracture or dislocation Electronically signed by: Jah Abbott MD (02/11/2020 3:05 AM) [id number]
[2020-02-11 03:15] LABS: BASO % 1 % (0-3); EOS % 0 % (0-3); HEMATOCRIT 40.2 % (36.0-47.0); HEMOGLOBIN 13.4 g/dL (12.0-15.5); LYMPH # 0.7 x10^3/uL (1.0-4.8); LYMPH % 10 % (24-48); MEAN CORPUSCULAR HEMOGLOBIN 31 pg (25-35); MEAN CORPUSCULAR HGB CONC 33 g/dL (31-37); MEAN CORPUSCULAR VOLUME 93 fL (79-100); MONO # 0.6 x10^3/uL (0.0-1.1); MONO % 8 % (0-9); NEUT % 82 % (31-73); PLATELET COUNT 165 x10^3/uL (140-400); RED BLOOD COUNT 4.32 x10^6/uL (3.50-5.40); WHITE BLOOD COUNT 7.4 x10^3/uL (4.0-11.0)
[2020-02-11 03:29] LABS: CALCIUM 9.1 mg/dL (8.5-10.1); CREATININE 0.8 mg/dL (0.6-1.0); GFR 74.7
[2020-02-11 03:35] LABS: ALBUMIN 3.4 g/dL (3.4-5.0); TOTAL BILIRUBIN 0.3 mg/dL (0.2-1.0); TOTAL PROTEIN 6.8 g/dL (6.4-8.2)
--- NOTE | 2020-02-11 04:00 | PHYS DOC ---
Past Medical History Past Medical History: Anxiety, Dementia Additional Past Medical Histor: BEHAVIORAL DISTURBANCE DISORDER, IMPULSE DISORDER Past Surgical History: No Surgical History Smoking Status: Unknown if ever smoked Alcohol Use: None General Adult EDM: Chief Complaint: MECHANICAL FALL HPI: HPI: Patient is a 54-year-old female who presents to the emergency room after having a fall. Patient has severe dementia and lives in a memory care unit. This is her third fall recently. She was seen here earlier this week for a fall requiring stitches to her forehead. Unknown loss of consciousness. Patient is unable to provide any history. She is ambulatory upon arrival. Review of Systems: Review of Systems: Unable to obtain due to dementia Heart Score: Risk Factors: Risk Factors: DM, Current or recent (<one month) smoker, HTN, HLP, family history of CAD, obesity. Risk Scores: Score 0 - 3: 2.5% MACE over next 6 weeks - Discharge Home Score 4 - 6: 20.3% MACE over next 6 weeks - Admit for Clinical Observation Score 7 - 10: 72.7% MACE over next 6 weeks - Early Invasive Strategies Allergies: Allergies: Allergies Coded Allergies Type Severity Reaction Last Updated Verified codeine Allergy Intermediate 04/23/18 Yes Physical Exam: PE: General: Awake, alert, NAD. Cooperative HEENT: small 1 cm well approximated superficial laceration to posterior scalp, multiple bruises in various stages of healing on face, stitches in place in L forehead, EOMI, PERRL, airway patent, moist oral mucosa Neck: Supple, trachea midline Respiratory: CTA bilaterally, normal effort, no wheezing/crackles CV: RRR, no murmur, cap refill <2 GI: Soft, nondistended, nontender, no masses MSK: No obvious deformities Skin: Warm, dry, intact Neuro: nonverbal, sensory and motor grossly intact, no focal deficits Current Patient Data: Labs: Laboratory Tests Test 02/11/20 02:50 White Blood Count 7.4 x10^3/uL (4.0-11.0) Red Blood Count 4.32 x10^6/uL (3.50-5.40) Hemoglobin 13.4 g/dL (12.0-15.5) Hematocrit 40.2 % (36.0-47.0) Mean Corpuscular Volume 93 fL (79-100) Mean Corpuscular Hemoglobin 31 pg (25-35) Mean Corpuscular Hemoglobin Concent 33 g/dL (31-37) Red Cell Distribution Width 17.0 % (11.5-14.5) H Platelet Count 165 x10^3/uL (140-400) Neutrophils (%) (Auto) 82 % (31-73) H Lymphocytes (%) (Auto) 10 % (24-48) L Monocytes (%) (Auto) 8 % (0-9) Eosinophils (%) (Auto) 0 % (0-3) Basophils (%) (Auto) 1 % (0-3) Neutrophils # (Auto) 6.0 x10^3/uL (1.8-7.7) Lymphocytes # (Auto) 0.7 x10^3/uL (1.0-4.8) L Monocytes # (Auto) 0.6 x10^3/uL (0.0-1.1) Eosinophils # (Auto) 0.0 x10^3/uL (0.0-0.7) Basophils # (Auto) 0.0 x10^3/uL (0.0-0.2) Sodium Level 142 mmol/L (136-145) Potassium Level 4.0 mmol/L (3.5-5.1) Chloride Level 105 mmol/L (98-107) Carbon Dioxide Level 30 mmol/L (21-32) Anion Gap 7 (6-14) Blood Urea Nitrogen 20 mg/dL (7-20) Creatinine 0.8 mg/dL (0.6-1.0) Estimated GFR (Cockcroft-Gault) 74.7 BUN/Creatinine Ratio 25 (6-20) H Glucose Level 85 mg/dL (70-99) Calcium Level 9.1 mg/dL (8.5-10.1) Total Bilirubin 0.3 mg/dL (0.2-1.0) Aspartate Amino Transferase (AST) 17 U/L (15-37) Alanine Aminotransferase (ALT) 24 U/L (14-59) Alkaline Phosphatase 104 U/L (46-116) Troponin I Quantitative < 0.017 ng/mL (0.000-0.055) Total Protein 6.8 g/dL (6.4-8.2) Albumin 3.4 g/dL (3.4-5.0) Albumin/Globulin Ratio 1.0 (1.0-1.7) Laboratory Tests 02/11/20 02:50 Laboratory Tests 02/11/20 02:50 Vital Signs: Vital Signs Date Time Temp Pulse Resp B/P (MAP) Pulse Ox O2 Delivery O2 Flow Rate FiO2 02/11/20 00:35 97.4 76 16 102/58 (73) 100 Room Air 97.4 EKG: EKG: [] Radiology/Procedures: Radiology/Procedures: [] Course & Med Decision Making: Course & Med Decision Making Pertinent Labs and Imaging studies reviewed. (See chart for details) Patient is a 54 year old female who presents to the Emergency Room after having a fall from standing. Patient is reportedly at her baseline. She has a small superficial laceration that does not need repair at this time. Area was cleaned in the Emergency Room. CT head, cspine, maxillofacial was ordered and were normal. Basic labs were done to ensure no other causes of increased falls. Labs are unremarkable. Patient is stable for discharge at this time. Patient's test results and vitals while in the ED were fully reviewed and discussed with the patient. Patient is stable and at this time does not need admission to the hospital. We have discussed strict return precautions and the importance of following up with their Primary Care Physician. Patient stated understanding and was given an opportunity to ask any questions. Patient is in agreement with plan. Lizzeth Disclaimer: Lizzeth Disclaimer: This electronic medical record was generated, in whole or in part, using a voice recognition dictation system. Departure Departure Impression: Primary Impression: Dementia Additional Impression: Closed head injury Disposition: 03 TRANSFER SNF Condition: STABLE Referrals: PAMELA AC DO (PCP) Patient Instructions: Fall Prevention in Hospitals, Head Injury, Adult Justicifation of Admission Dx: Justifications for Admission: Justification of Admission Dx: No STEVEN VILLASENOR MD Feb 11, 2020 04:00
--- NOTE | 2020-02-11 04:38 | RAD ---
INDICATION: Reason: AMS / Spl. Instructions: / History: COMPARISON: February 01, 2020 FINDINGS: Single view of chest obtained. Cardiomediastinal silhouette is similar to prior. Degenerative changes of the spine. Mild interstitial prominence similar to prior. IMPRESSION: * Similar exam compared to prior without new region of focal airspace consolidation. Electronically signed by: Jah Abbott MD (02/11/2020 4:35 AM) [id number]
[2020-02-11 05:15] VITALS: BP 110/60
--- NOTE | 2020-02-11 09:28 | EKG ---
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
== END 2020-02-11 05:15 ==
LOC: ER 00:29
DX: S09.8XXA Other specified injuries of head, initial encounter (principal); F03.90 Unspecified dementia, unspecified severity, without behavioral disturbance, psychotic disturbance, mood disturbance, and anxiety; F41.9 Anxiety disorder, unspecified; Z88.5 Allergy status to narcotic agent; W18.39XA Other fall on same level, initial encounter; Y93.89 Activity, other specified; Y92.89 Other specified places as the place of occurrence of the external cause; Y99.8 Other external cause status
CPT/HCPCS: 36415; 70450; 70486; 71045; 72125; 80053; 84484; 85025; 93005; 99285